=== PATIENT | female | born 1990 | race African-American/Black ===

== ENCOUNTER 2020-06-07 08:09 | Emergency (ER) | payer BC, OTHER ==
[~2020-06-07] VITALS: Ht 165.1 cm; Wt 81.7 kg
[~2020-06-07 08:09] MED LIST: IBUPROFEN 600600 M1 PO; KEFLEX500 MG PO; UNICOMPLEX M TA1 TA1
[2020-06-07 09:50] VITALS: BP 130/78
== END 2020-06-07 10:01 | disposition home or self-care (01) ==
LOC: ER 08:09
DX: H92.01 Otalgia, right ear (principal)